=== PATIENT | male | born 1955 | race Caucasian/White ===

== ENCOUNTER 2021-01-29 14:30 | Outpatient (CLI) | payer MEDICARE | END 2021-01-29 14:31 | disposition home or self-care (01) | LOC: CSHCT 14:30 | PROVIDERS: ATTEND Otolaryngology Otolaryngic Allergy | DX: H69.82 Other specified disorders of Eustachian tube, left ear (principal); H65.22 Chronic serous otitis media, left ear; H74.92 Unspecified disorder of left middle ear and mastoid | CPT/HCPCS: 70480 ==